=== PATIENT | male | born 1935 | race Hispanic/Latino ===

== ENCOUNTER 2019-12-13 12:25 | Outpatient (CLI) | payer MEDICARE ==
--- NOTE | 2019-12-13 16:22 | PET Report ---
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 - CT SCAN DESCRIPTION: No oral or IV contrast. All CT scans at this location are performed using CT d ose reduction for ALARA by means of automated exposure control. COMPARISON: PET CT scan dated 07/05/2019 FINDINGS: HEAD / NECK: No abnormal radiotracer uptake in the neck. No significant CT abnormality. CHEST: No abnormal radiotracer uptake in the chest. Atherosclerotic calcifications are noted. No pulm onary nodules or masses are seen. ABDOMEN / PELVIS: No abnormal radiotracer uptake in the abdomen. There is significant decrease in siz e in soft tissue abnormality in the presacral space. The prior study this measured approximately 4.6 x 3.5 cm no today's examination measures 1.5 x 1.4 cm. The abnormal soft tissue density at the anus i s also significantly decreased in size. Atherosclerotic calcifications are noted in the aorta and kai ac arteries. Kidneys are unchanged in appearance. Inguinal adenopathy has resolved in the interval LOWER EXTREMITIES: No abnormal radiotracer uptake in the visualized lower extremities. No significant CT abnormality. SKELETAL STRUCTURES: No hypermetabolic bone lesions. No acute osseous abnormalities are seen. Degener ative changes are noted in the spine and hips ADDITIONAL FINDINGS: No additional significant findings. IMPRESSION: 1. Previously noted pathologic uptake has resolved. On today's examination, there is no pathologic up take of tracer. Soft tissue mass in the presacral space is significantly decreased in size. Anal mass is decreased in size. Signer Name: Shad Weiss MD Signed: 12/13/2019 4:17 PM Workstation Name: [id number]
== END 2019-12-13 12:26 | disposition home or self-care (01) ==
LOC: PET 12:25
PROVIDERS: ATTEND Internal Medicine Hematology & Oncology
DX: C21.1 Malignant neoplasm of anal canal (principal); I70.298 Other atherosclerosis of native arteries of extremities, other extremity; I70.0 Atherosclerosis of aorta; M47.817 Spondylosis without myelopathy or radiculopathy, lumbosacral region; M16.10 Unilateral primary osteoarthritis, unspecified hip
CPT/HCPCS: 78815; 82962; A9552